=== PATIENT | born 1950 | race Caucasian/White ===

== ENCOUNTER → 2025-09-11 09:12 | Outpatient (BNVA) | payer MEDICARE, SELFPAY | PROVIDERS: Referring Provider Surgery; Visit Provider Internal Medicine Rheumatology | DX: M05.79 Rheumatoid arthritis with rheumatoid factor of multiple sites without organ or systems involvement (principal); Z79.899 Other long term (current) drug therapy; Z71.85 Encounter for immunization safety counseling; R74.01 Elevation of levels of liver transaminase levels; M25.50 Pain in unspecified joint; M81.0 Age-related osteoporosis without current pathological fracture | CPT/HCPCS: 36415; 80076; 82306; 85651; 86140; 86480; 86704; 86803; 87340; 99204 ==